=== PATIENT | female | born 1940 | race Hispanic/Latino ===

== ENCOUNTER 2018-01-03 19:35 | Observation (INO) | payer MEDICARE ==
[~2018-01-03] VITALS: Ht 144.8 cm; Wt 64.3 kg
[~2018-01-03 19:35] MED LIST: ALLO100T PO; ASPI-555 PO; CARV3.12 PO; CHOL200016 PO; CIPR-245 PO; DONE5TAB33 PO; FERS325 PO; GABA-529 PO; LOSA1TAB54 PO; METO10TA3 PO; SERT50TA PO; SIMV40TA59 PO; SOLI5 PO; THIAM100TB PO; TRAZ-185 PO; VIT1TABL75 PO
[2018-01-03 20:10] LABS: BASOPHILS % (AUTO) 0.8 % (0.0-5.0); HEMATOCRIT 31.1 % (36-48); LYMPHOCYTES % (AUTO) 26.5 % (21.0-51.0); MEAN CORPUSCULAR HEMOGLOBIN 32.2 pg (27.0-33.0); MEAN CORPUSCULAR VOLUME 94.8 fL (79-99); MONOCYTES % (AUTO) 7.7 % (3.0-13.0); PLATELET COUNT (AUTO) 241 K/uL (130-400); RED BLOOD CELL COUNT(AUTO) 3.28 MIL/uL (4.00-5.50); RED CELL DISTRIBUTION WIDTH 12.5 % (11.0-15.5); WHITE BLOOD COUNT (AUTO) 7.2 K/uL (4.8-10.8)
[2018-01-03 20:19] LABS: POTASSIUM 4.4 mmol/L (3.5-5.1)
[2018-01-03 20:24] LABS: ALBUMIN 3.2 g/dL (3.5-5.0); BILIRUBIN,TOTAL 0.3 mg/dL (0.2-1.0); TOTAL PROTEIN, SERUM 7.2 g/dL (6.0-8.3)
[2018-01-03 20:37] LABS: BILIRUBIN,URINE Negative (NEGATIVE); COLOR,URINE Yellow (YELLOW); GLUCOSE, URINE (UA) 250 mg/dL (NEGATIVE); KETONES,URINE Negative (NEGATIVE); LEUKOCYTE ESTERASE ,URINE Negative (NEGATIVE); NITRATE,URINE Negative (NEGATIVE); OCCULT BLOOD,URINE Negative (NEGATIVE); PROTEIN,URINE 300 (NEGATIVE); UROBILINOGEN,URINE 0.2 mg/dL (0.2-1.0)
[2018-01-03 20:38] LABS: APPEARANCE,URINE SLIGHTLY CLOUDY (CLEAR)
[2018-01-03 20:58] LABS: BACTERIA,URINE Few /HPF (None Seen); MUCUS,URINE Few LPF (None Seen); RBC,URINE None Seen /HPF (0-1)
[2018-01-03] MEDS ORDERED: CLONIDINE HCL 0.1 MG TABLET ONE (21:21)
[2018-01-03] MEDS ORDERED: MORPHINE SULFATE 4 MG/1ML SYG ONE (21:21)
[2018-01-03] MEDS ORDERED: ONDANSETRON ODT 4 MG TAB ONE ×2 (21:21→23:47)
[2018-01-03] MEDS ORDERED: MECLIZINE HCL 25 MG TABLET ONE (23:48)
[2018-01-04] VITALS (9 sets, daily range): BP systolic 113–198; BP diastolic 50–83
[2018-01-04] MEDS ORDERED: HYDROMORPHONE HCL 0.5 MG/0.5 ML ML ONE (00:28)
[2018-01-04] MEDS ORDERED: HYDRALAZINE HCL 20 MG/ML VIAL ONE (00:28)
[2018-01-04] MEDS ORDERED: ONDANSETRON HCL MDV 20ML 2 MG/ML VIAL ONE (00:28)
[2018-01-04] MEDS ORDERED: HYDRALAZINE HCL 20 MG/ML VIAL IV PRN (01:45)
[2018-01-04] MEDS ORDERED: DEXTROSE 50%-WATER 50 ML DISP.SYRIN IV PRN (01:45)
[2018-01-04] MEDS ORDERED: CLONIDINE HCL 0.1 MG TABLET PO PRN (01:45)
[2018-01-04] MEDS ORDERED: ONDANSETRON HCL MDV 20ML 2 MG/ML VIAL IVP PRN (01:45)
[2018-01-04] MEDS ORDERED: GLUCAGON 1MG KIT 1 MG ML IM PRN (01:45)
[2018-01-04] MEDS ORDERED: LORA10CA9 PO (02:59)
[2018-01-04] MEDS ORDERED: FOLI1TAB61 PO (02:59)
[2018-01-04] MEDS ORDERED: INSU100V3 SQ (02:59)
[2018-01-04] MEDS ORDERED: INSLAN SQ (02:59)
[2018-01-04] MEDS ORDERED: LINA5TAB PO (02:59)
[2018-01-04] MEDS ORDERED: GLIP5TAB11 PO (02:59)
[2018-01-04] MEDS ORDERED: FOSI40TA4 PO (02:59)
[2018-01-04 04:14] LABS: HEMATOCRIT 29.9 % (36-48); MEAN CORPUSCULAR HEMOGLOBIN 34.2 pg (27.0-33.0); MEAN CORPUSCULAR HGB CONC 36.2 g/dL (32.0-36.0); MEAN CORPUSCULAR VOLUME 94.6 fL (79-99); NUCLEATED RED BLOOD CELLS 0.1 % (0.0-0.19); PLATELET COUNT (AUTO) 234 K/uL (130-400); RED BLOOD CELL COUNT(AUTO) 3.16 MIL/uL (4.00-5.50); RED CELL DISTRIBUTION WIDTH 12.6 % (11.0-15.5); WHITE BLOOD COUNT (AUTO) 10.4 K/uL (4.8-10.8)
[2018-01-04 04:41] LABS: ALBUMIN 3.2 g/dL (3.5-5.0); BILIRUBIN,TOTAL 0.3 mg/dL (0.2-1.0); CREATININE 1.9 mg/dL (0.5-1.5); POTASSIUM 4.3 mmol/L (3.5-5.1); TOTAL PROTEIN, SERUM 7.2 g/dL (6.0-8.3)
[2018-01-04] MEDS ORDERED: INSULIN HUMULIN R 100 UNIT/ML 3ML SQ PRN ×2 (06:30)
[2018-01-04] MEDS ORDERED: PANTOPRAZOLE 40 MG/VIAL IVP SCH (09:00)
[2018-01-04] MEDS: VITAMIN B COMPLEX 1 CAPSULE PO SCH (09:24)
[2018-01-04] MEDS: ASPIRIN 81 MG EC TAB PO SCH (09:24)
[2018-01-04] MEDS: LINAGLIPTIN 5 MG TABLET PO SCH (09:24)
[2018-01-04] MEDS: LORATADINE 10 MG TABLET PO SCH (09:24)
[2018-01-04] MEDS: LISINOPRIL 40 MG TABLET PO SCH (09:24)
[2018-01-04] MEDS: THIAMINE HCL 100 MG TABLET PO SCH (09:24)
[2018-01-04] MEDS: CARVEDILOL 3.125 MG TABLET PO SCH ×3 (09:25→21:07)
[2018-01-04] MEDS: SERTRALINE HCL 50 MG TABLET PO SCH (09:25)
[2018-01-04] MEDS: MECLIZINE HCL 25 MG TABLET PO SCH (09:25)
[2018-01-04] MEDS: PANTOPRAZOLE SODIUM 40 MG TABLET.DR PO SCH (09:26)
[2018-01-04] MEDS: GLIPIZIDE 5 MG TABLET PO SCH (09:26)
[2018-01-04] MEDS ORDERED: INSULIN GLARGINE 100 UNITS/ML 10 ML VIAL SQ SCH (21:00)
[2018-01-04] MEDS ORDERED: ATORVASTATIN CALCIUM 10 MG TABLET PO SCH (21:00)
[2018-01-04] MEDS ORDERED: DONEPEZIL HCL 5 MG TAB PO SCH (21:00)
[2018-01-05 04:24] VITALS: BP 138/61
[2018-01-05 08:00] VITALS: BP 155/67
[2018-01-05] MEDS: SERTRALINE HCL 50 MG TABLET PO SCH (08:11)
[2018-01-05] MEDS: LORATADINE 10 MG TABLET PO SCH (08:11)
[2018-01-05] MEDS: LINAGLIPTIN 5 MG TABLET PO SCH (08:12)
[2018-01-05] MEDS: VITAMIN B COMPLEX 1 CAPSULE PO SCH (08:12)
[2018-01-05] MEDS: PANTOPRAZOLE SODIUM 40 MG TABLET.DR PO SCH (08:12)
[2018-01-05] MEDS: MECLIZINE HCL 25 MG TABLET PO SCH (08:12)
[2018-01-05] MEDS: GLIPIZIDE 5 MG TABLET PO SCH (08:12)
[2018-01-05] MEDS: THIAMINE HCL 100 MG TABLET PO SCH (08:12)
[2018-01-05] MEDS: ASPIRIN 81 MG EC TAB PO SCH (08:12)
[2018-01-05] MEDS: LISINOPRIL 40 MG TABLET PO SCH (08:13)
[2018-01-05 08:14] VITALS: BP 155/67
[2018-01-05] MEDS: CARVEDILOL 3.125 MG TABLET PO SCH (08:14)
== END 2018-01-05 11:00 | disposition home or self-care (01) ==
LOC: EDH 19:35 → 3AH 01-04 01:10
PROVIDERS: ADMIT Internal Medicine Nephrology; ATTEND Internal Medicine Nephrology
DX: I16.1 Hypertensive emergency (principal); F32.9 Major depressive disorder, single episode, unspecified; I10 Essential (primary) hypertension; N19 Unspecified kidney failure; E11.9 Type 2 diabetes mellitus without complications; Z79.4 Long term (current) use of insulin; G43.909 Migraine, unspecified, not intractable, without status migrainosus; D63.8 Anemia in other chronic diseases classified elsewhere; F03.90 Unspecified dementia, unspecified severity, without behavioral disturbance, psychotic disturbance, mood disturbance, and anxiety; Z86.73 Personal history of transient ischemic attack (TIA), and cerebral infarction without residual deficits; Z79.899 Other long term (current) drug therapy
CPT/HCPCS: 36415 ×2; 70450; 80053 ×2; 81001; 82550; 82948 ×6; 84484; 85025; 85027; 87804 ×2; 93005; 96372; 99285; G0378 ×34; J0360; J1170; J1815; J2270; C9113

== ENCOUNTER 2018-03-01 16:06 | Emergency (ER) | payer MEDICARE ==
[~2018-03-01 16:06] MED LIST changes: +FOLI1TAB61 PO; +FOSI40TA4 PO; +GLIP5TAB11 PO; +INSLAN SQ; +INSU100V3 SQ; +LINA5TAB PO; +LORA10CA9 PO; -VIT1TABL75 PO
[2018-03-01 16:41] LABS: BASOPHILS % (AUTO) 1.1 % (0.0-5.0); EOSINOPHILS % (AUTO) 2.6 % (0.0-8.0); HEMATOCRIT 29.9 % (36-48); LYMPHOCYTES % (AUTO) 29.7 % (21.0-51.0); MEAN CORPUSCULAR HEMOGLOBIN 31.9 pg (27.0-33.0); MEAN CORPUSCULAR HGB CONC 33.7 g/dL (32.0-36.0); MEAN CORPUSCULAR VOLUME 94.7 fL (79-99); MONOCYTES % (AUTO) 8.6 % (3.0-13.0); NUCLEATED RED BLOOD CELLS 0.1 % (0.0-0.19); PLATELET COUNT (AUTO) 220 K/uL (130-400); RED BLOOD CELL COUNT(AUTO) 3.16 MIL/uL (4.00-5.50); WHITE BLOOD COUNT (AUTO) 7.3 K/uL (4.8-10.8)
[2018-03-01 16:54] LABS: CREATININE 2.3 mg/dL (0.5-1.5); INR 0.92 (0.85-1.15); PARTIAL THROMBOPLASTIN TIME 26.2 SEC (26.3-35.5); POTASSIUM 4.4 mmol/L (3.5-5.1); PROTHROMBIN TIME 9.7 SEC (9.6-11.6)
[2018-03-01 17:08] LABS: ALBUMIN 3.1 g/dL (3.5-5.0); BILIRUBIN,TOTAL 0.2 mg/dL (0.2-1.0); CREATINE KINASE MB 0.6 ng/mL (0.5-3.6); TOTAL PROTEIN, SERUM 6.9 g/dL (6.0-8.3)
[2018-03-01] MEDS ORDERED: ACETAMINOPHEN 325 MG TAB ONE (17:23)
[2018-03-01] MEDS ORDERED: MORPHINE SULFATE 2 MG/ML 1ML SYG ONE (20:01)
== END 2018-03-01 20:19 | disposition home or self-care (01) ==
LOC: EDH 16:06
DX: G44.209 Tension-type headache, unspecified, not intractable (principal); I10 Essential (primary) hypertension; F32.9 Major depressive disorder, single episode, unspecified; E11.9 Type 2 diabetes mellitus without complications; R79.1 Abnormal coagulation profile; Z86.73 Personal history of transient ischemic attack (TIA), and cerebral infarction without residual deficits
CPT/HCPCS: 36415; 80053; 82550; 82553; 84484; 85025; 85610; 85730; 96374

== ENCOUNTER 2018-05-24 19:40 | Emergency (ER) | payer MEDICARE ==
[~2018-05-24 19:40] MED LIST changes: -ALLO100T PO; +ASPI-1181 PO; -ASPI-555 PO; -CHOL200016 PO; +CICL34.62 TP; -CIPR-245 PO; +CLON0.2T PO; +CLON1PAT4 TD; -DONE5TAB33 PO; -FERS325 PO; +FOLI0.8T22 PO; -FOLI1TAB61 PO; -GABA-529 PO; +GLIP10TA9 PO; -GLIP5TAB11 PO; +LORA-705 PO; -LORA10CA9 PO; -LOSA1TAB54 PO; -METO10TA3 PO; +QUET25TA74 PO; +RIVA3CAP5 PO; -SERT50TA PO; +SIMV20TA6 PO; -SIMV40TA59 PO; -SOLI5 PO; -TRAZ-185 PO
[2018-05-24 20:01] LABS: BASOPHILS % (AUTO) 1.1 % (0.0-5.0); EOSINOPHILS % (AUTO) 3.3 % (0.0-8.0); MEAN CORPUSCULAR HEMOGLOBIN 30.6 pg (27.0-33.0); MEAN CORPUSCULAR HGB CONC 32.8 g/dL (32.0-36.0); MEAN CORPUSCULAR VOLUME 93.2 fL (79-99); MONOCYTES % (AUTO) 3.5 % (3.0-13.0); NEUTROPHILS % (AUTO) 66.1 % (40.0-77.0); PLATELET COUNT (AUTO) 188 K/uL (130-400); RED BLOOD CELL COUNT(AUTO) 3.65 MIL/uL (4.00-5.50); RED CELL DISTRIBUTION WIDTH 12.4 % (11.0-15.5); WHITE BLOOD COUNT (AUTO) 8.7 K/uL (4.8-10.8)
[2018-05-24 20:11] LABS: CREATININE 2.4 mg/dL (0.5-1.5)
[2018-05-24 20:16] LABS: ALBUMIN 3.6 g/dL (3.5-5.0); BILIRUBIN,TOTAL 0.3 mg/dL (0.2-1.0); TOTAL PROTEIN, SERUM 7.9 g/dL (6.0-8.3)
[2018-05-24] MEDS ORDERED: CLONIDINE HCL 0.1 MG TABLET ONE (20:45)
[2018-05-24] MEDS ORDERED: ACETAMINOPHEN EXTRA STRENGTH 500 MG TABLET ONE (21:03)
[2018-05-24] MEDS ORDERED: LABETALOL HCL 5 MG/ML 20ML VIAL IV ONE (22:55)
[2018-05-25] MEDS ORDERED: KETAMINE 50MG/ML SYRINGE 50 MG/ML DISP.SYRIN IV ONE (00:29)
[2018-05-25] MEDS ORDERED: SODIUM CHLORIDE 0.9% 100 ML IV ONE (00:37)
== END 2018-05-25 02:41 | disposition home or self-care (01) ==
LOC: EDH 19:40
DX: I16.9 Hypertensive crisis, unspecified (principal); R51 Headache; I10 Essential (primary) hypertension; E11.9 Type 2 diabetes mellitus without complications; F03.90 Unspecified dementia, unspecified severity, without behavioral disturbance, psychotic disturbance, mood disturbance, and anxiety; F32.9 Major depressive disorder, single episode, unspecified; Z86.73 Personal history of transient ischemic attack (TIA), and cerebral infarction without residual deficits
CPT/HCPCS: 36415; 80053; 82948; 85025; 93005; 96365; 96375; 96376; 99291; J3490 ×2

== ENCOUNTER 2018-05-28 18:34 | Emergency (ER) | payer MEDICARE ==
[2018-05-28 19:34] LABS: BASOPHILS % (AUTO) 0.7 % (0.0-5.0); EOSINOPHILS % (AUTO) 3.2 % (0.0-8.0); HEMATOCRIT 32.6 % (36-48); LYMPHOCYTES % (AUTO) 29.1 % (21.0-51.0); MEAN CORPUSCULAR HEMOGLOBIN 31.2 pg (27.0-33.0); MEAN CORPUSCULAR HGB CONC 33.7 g/dL (32.0-36.0); MEAN CORPUSCULAR VOLUME 92.6 fL (79-99); MONOCYTES % (AUTO) 6.9 % (3.0-13.0); NEUTROPHILS % (AUTO) 60.1 % (40.0-77.0); NUCLEATED RED BLOOD CELLS 0.1 % (0.0-0.19); PLATELET COUNT (AUTO) 167 K/uL (130-400); RED BLOOD CELL COUNT(AUTO) 3.52 MIL/uL (4.00-5.50); RED CELL DISTRIBUTION WIDTH 11.8 % (11.0-15.5); WHITE BLOOD COUNT (AUTO) 8.4 K/uL (4.8-10.8)
[2018-05-28 19:44] LABS: CREATININE 2.3 mg/dL (0.5-1.5); POTASSIUM 4.2 mmol/L (3.5-5.1)
[2018-05-28 19:47] LABS: INR 0.94 (0.85-1.15); PARTIAL THROMBOPLASTIN TIME 27.7 SEC (26.3-35.5); PROTHROMBIN TIME 9.9 SEC (9.6-11.6)
[2018-05-28 19:53] LABS: ALBUMIN 3.3 g/dL (3.5-5.0); BILIRUBIN,TOTAL 0.3 mg/dL (0.2-1.0); TOTAL PROTEIN, SERUM 7.3 g/dL (6.0-8.3)
[2018-05-28 20:04] LABS: APPEARANCE,URINE Clear (CLEAR); BILIRUBIN,URINE Negative (NEGATIVE); COLOR,URINE Yellow (YELLOW); GLUCOSE, URINE (UA) Negative (NEGATIVE); KETONES,URINE Negative (NEGATIVE); LEUKOCYTE ESTERASE ,URINE Small (NEGATIVE); NITRATE,URINE Negative (NEGATIVE); OCCULT BLOOD,URINE Negative (NEGATIVE); PROTEIN,URINE POS 2+ (NEGATIVE); UROBILINOGEN,URINE 0.2 mg/dL (0.2-1.0)
[2018-05-28 20:09] LABS: BACTERIA,URINE Few /HPF (None Seen); RBC,URINE 0-1 /HPF (0-1)
[2018-05-28 20:10] LABS: SQUAMOUS EPITHELIAL CELL,UR Rare /HPF (0-2)
== END 2018-05-28 22:11 | disposition home or self-care (01) ==
LOC: EDH 18:34
DX: I10 Essential (primary) hypertension (principal); F41.9 Anxiety disorder, unspecified; F03.90 Unspecified dementia, unspecified severity, without behavioral disturbance, psychotic disturbance, mood disturbance, and anxiety; E11.9 Type 2 diabetes mellitus without complications; Z79.4 Long term (current) use of insulin; Z86.73 Personal history of transient ischemic attack (TIA), and cerebral infarction without residual deficits
CPT/HCPCS: 36415; 70450; 80053; 81001; 82550; 84484; 85025; 85610; 85730; 93005